=== PATIENT | female | born 1985 | race Asian ===

== ENCOUNTER 2017-10-28 20:35 | Inpatient (IN) | payer SELFPAY ==
[~2017-10-28] VITALS: Ht 160 cm; Wt 59.0 kg
[2017-10-28] MEDS ORDERED: TEMAZEPAM 15 MG CAP PO PRN (21:05)
[2017-10-28] MEDS ORDERED: METHYLERGONOVINE 0.2 MG/ML AMP IM PRN (21:05)
[2017-10-28] MEDS ORDERED: oxyCODONE/APAP 5/325 MG 1 TAB TAB PO PRN (21:05)
[2017-10-28] MEDS ORDERED: HYDROcodone/APAP 5/325 MG 1 TAB TAB PO PRN (21:05)
[2017-10-28] MEDS ORDERED: BENZOCAINE/MENTHOL 20%-0.5% 60 GM CAN TP PRN (21:05)
[2017-10-28] MEDS ORDERED: OXYTOCIN 10 UNITS/ML VIAL IM PRN (21:05)
[2017-10-28] MEDS ORDERED: MEASLES, MUMPS, AND RUBELLA 1 VIAL SQVAC PRN (21:05)
[2017-10-28] MEDS ORDERED: OXYTOCIN 10 UNITS/ML VIAL ONE (21:06)
[2017-10-28] MEDS ORDERED: OXYTOCIN 20 UNITS/LR PREMIX 1,000 ML IV ONE (21:07)
[2017-10-28] MEDS ORDERED: LACTATED RINGERS 1,000 ML IV SCH (21:26)
[2017-10-28] MEDS ORDERED: NALBUPHINE 10 MG/ML AMP IVP ONE (21:30)
[2017-10-28] MEDS ORDERED: PROMETHAZINE 25 MG/ML VIAL IVP ONE (21:30)
[2017-10-28] MEDS ORDERED: OXYTOCIN 10 UNITS/ML VIAL IM SCH (21:30)
[2017-10-28] MEDS ORDERED: NALBUPHINE 10 MG/ML AMP ONE (22:15)
[2017-10-28] MEDS: IBUPROFEN 800 MG TAB PO PRN (22:40)
[2017-10-29 06:13] LABS: BASOPHILS % (AUTO) 0.3 % (0.0-2.0); EOSINOPHILS % (AUTO) 0.2 % (0.0-4.0); HEMATOCRIT 34.7 % (36-48); HEMOGLOBIN 11.6 g/dL (12.0-16.0); LYMPHOCYTES # (AUTO) 1.7 K/uL (2.5-16.5); LYMPHOCYTES % (AUTO) 16.1 % (20.5-51.1); MEAN CORPUSCULAR HEMOGLOBIN 32 pg (27-31); MEAN CORPUSCULAR HGB CONC 34 g/dL (33-37); MEAN CORPUSCULAR VOLUME 95.8 fL (80-94); MONOCYTES # (AUTO) 0.5 K/uL (0.8-1.0); MONOCYTES % (AUTO) 4.8 % (1.7-9.3); NEUTROPHILS # (AUTO) 8.3 K/uL (1.8-7.7); NEUTROPHILS % (AUTO) 78.6 % (42.2-75.2); PLATELET COUNT (AUTO) 167 K/uL (140-450); RED BLOOD CELL COUNT(AUTO) 3.62 MIL/uL (4.20-5.40); RED CELL DISTRIBUTION WIDTH 13.2 % (11.6-13.7); WHITE BLOOD COUNT (AUTO) 10.5 K/uL (4.8-10.8)
[2017-10-29 07:47] VITALS: BP 107/64
--- NOTE | 2017-10-29 08:48 | NUR ---
PATIENT HAS BEEN SCREENED AND CATEGORIZED LOW NUTRITION RISK. PATIENT WILL BE SEEN WITHIN 7 DAYS OF ADMISSION. 11/04/[address]
[2017-10-29 15:35] LABS: RAPID PLASMA REAGIN NON-REACTIVE (Non Reactiv)
[2017-10-29] MEDS ORDERED: DOCUSATE SOD/SENNA 50/8.6 MG 1 TAB PO SCH (21:00)
[2017-10-30] MEDS: IBUPROFEN 800 MG TAB PO PRN (04:13)
[2017-10-30] MEDS ORDERED: IBUP-1842 PO (10:41)
== END 2017-10-30 18:15 | disposition home or self-care (01) | DRG 775 ==
LOC: MLD 20:35 → MFCC 10-29 00:35
PROVIDERS: ADMIT Obstetrics & Gynecology; ATTEND Obstetrics & Gynecology
PROC: 10E0XZZ Delivery of Products of Conception, External Approach (ICD-10-PCS; principal; 2017-10-28)
PROC: 0KQM0ZZ Repair Perineum Muscle, Open Approach (ICD-10-PCS; 2017-10-28)
DX: O62.3 Precipitate labor (principal); Z37.0 Single live birth; O70.1 Second degree perineal laceration during delivery; Z3A.38 38 weeks gestation of pregnancy
CPT/HCPCS: 36415; 59409; 85025; 86592; 86762; 86886; 86900; 86901; 87340; J2300; J2590; J7120